=== PATIENT | male | born 1940 | race Caucasian/White ===

== ENCOUNTER 2021-03-29 06:44 | Day surgery (SDC) | payer OTHER, MEDICARE, BC ==
[~2021-03-29 06:44] MED LIST: Lactated Ringers 1,000 ML IV SCH; Sodium Chloride 0.9% 10 ML SDV IV PRN; Sodium Chloride 0.9% 10 ML Syringe FLUSH PRN; Sodium Chloride 0.9% 2.5 ML Syringe FLUSH PRN
[2021-03-29] MEDS ORDERED: fentaNYL 100 MCG/2 ML SDV ONE (06:54)
[2021-03-29] MEDS ORDERED: propofoL 0 ML ONE (06:55)
--- NOTE | 2021-03-29 07:31 | PCM.PREANE ---
Preanesthetic Assessment - Anesthesia/Transfusion/Family Hx Anesthesia History: Prior Anesthesia Without Reaction Transfusion History: No Prior Transfusion(s) - Review of Systems General: No Symptoms Pulmonary: No Symptoms Cardiovascular: No Symptoms Gastrointestinal: No Symptoms Neurological: No Symptoms Other: Reports: None - Physical Assessment NPO Status Date: 03/29/21 NPO Status Time: 00:00 Vital Signs: Last Vital Signs Temp 97.2 F 03/29/21 07:09 Pulse 67 03/29/21 07:09 Resp 15 03/29/21 07:09 BP 113/73 03/29/21 07:09 Pulse Ox 96 03/29/21 07:09 Height: 5 ft 9 in Weight: 174 lb ASA Class: 3 Mental Status: Alert & Oriented x3 Airway Class: Mallampati = 2 Dentition: Reports: Normal Dentition ROM/Head Extension: Full Lungs: Clear to Auscultation, Normal Respiratory Effort Cardiovascular: Regular Rate, Regular Rhythm - Allergies Allergies/Adverse Reactions: Allergies Allergy/AdvReac Type Severity Reaction Status Date / Time No Known Allergies Allergy Verified 03/25/21 10:19 - Acknowledgements Anesthesia Type Planned: General Anesthesia Pt an Appropriate Candidate for the Planned Anesthesia: Yes Alternatives and Risks of Anesthesia Discussed w Pt/Guardian: Yes Pt/Guardian Understands and Agrees with Anesthesia Plan: Yes PreAnesthesia Questionnaire HEENT History: Reports: None Cardiovascular History: Reports: High Cholesterol Respiratory History: Reports: None Gastrointestinal History: Reports: Cholelithiasis, Hiatal Hernia, Other (See Below) Other Gastrointestinal History: Inguinal Hernia Genitourinary History: Reports: BPH Musculoskeletal History: Reports: Fracture Other Musculoskeletal History: right hip Neurological History: Reports: None Psychiatric History: Reports: None 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 Immunologic History: Reports: Immunosuppression Oncologic (Cancer) History: Reports: Basal Cell Carcinoma, Hodgkin's Lymphoma Other Oncologic History: basal cell removed from nose - Infectious Disease History Infectious Disease History: Reports: Chicken Pox, Measles, Mumps - Past Surgical History Head Surgeries/Procedures: Reports: None HEENT Surgical History: Reports: LASIK Cardiovascular Surgical History: Reports: None Respiratory Surgical History: Reports: None GI Surgical History: Reports: Colonoscopy, Other (See Below) Other GI Surgeries/Procedures: Spleenectomy for Hodgkins Lymphoma Male Surgical History: Reports: None Endocrine Surgical History: Reports: None Neurological Surgical History: Reports: None Musculoskeletal Surgical History: Reports: ORIF, Other (See Below) Other Musculoskeletal Surgeries/Procedures:: RIGHT HIP FRACTURE, HAS PINS, partial excision of toenail for fungus Oncologic Surgical History: Reports: Other (See Below) Other Oncologic Surgeries/Procedures: Spleenectomy Dermatological Surgical History: Reports: Skin Biopsy - SUBSTANCE USE Tobacco Use Status *Q: Never Tobacco User Recreational Drug Use History: No - HOME MEDS Home Medications: Home Meds Cholestoff 450 mg PO DAILY 03/25/21 [History] Fludrocortisone [Florinef] 0.1 mg PO QAM 03/25/21 [History] Hydrocortisone 5 mg PO PCLUNCH 03/25/21 [History] Hydrocortisone [Cortef] 15 mg PO QAM 03/25/21 [History] Multivitamin 1 tab PO DAILY 03/25/21 [History] - CURRENT (IN HOUSE) MEDS Current Meds: Current Medications Lactated Ringer's (Ringers, Lactated) 1,000 mls @ 125 mls/hr IV ASDIRECTED DENNIS Last Admin: 03/29/21 07:15 Dose: 125 mls/hr Documented by: Sodium Chloride (Sodium Chloride 0.9% 10 Ml Syringe) 10 ml FLUSH ASDIRECTED PRN PRN Reason: Keep Vein Open Sodium Chloride (Sodium Chloride 0.9% 2.5 Ml Syringe) 2.5 ml FLUSH ASDIRECTED PRN PRN Reason: Keep Vein Open Sodium Chloride (Sodium Chloride 0.9% 10 Ml Syringe) 10 ml FLUSH ASDIRECTED PRN PRN Reason: Keep Vein Open Sodium Chloride (Sodium Chloride 0.9% 2.5 Ml Syringe) 2.5 ml FLUSH ASDIRECTED PRN PRN Reason: Keep Vein Open Sodium Chloride (Sodium Chloride 0.9% 10 Ml Sdv) 10 ml IV ASDIRECTED PRN PRN Reason: IV Use Discontinued Medications Fentanyl (Fentanyl 100 Mcg/2 Ml Sdv) Confirm Administered Dose 100 mcg .ROUTE .STK-MED ONE Stop: 03/29/21 06:55 Propofol (Diprivan 100 Ml) Confirm Administered Dose 100 mls @ as directed .ROUTE .STK-MED ONE Stop: 03/29/21 06:56 Lidocaine HCl (Lidocaine 1% 5 Ml Sdv) Confirm Administered Dose 5 ml .ROUTE .STK-MED ONE Stop: 03/29/21 06:55
[2021-03-29] MEDS ORDERED: Glycopyrrolate 0.2 MG/ML SDV ONE (08:54)
[2021-03-29] MEDS ORDERED: Propofol 200 MG/20 ML SDV ONE (08:55)
--- NOTE | 2021-03-29 10:00 | PCM.POSTAN ---
POST ANESTHESIA ASSESSMENT - MENTAL STATUS Mental Status: Alert, Oriented - VITAL SIGNS Vital Signs: Last Vital Signs Temp 97.2 F 03/29/21 07:09 Pulse 69 03/29/21 09:55 Resp 16 03/29/21 09:55 BP 109/64 03/29/21 09:55 Pulse Ox 97 03/29/21 09:55 - RESPIRATORY Respiratory Status: Respiratory Rate WNL, Airway Patent, O2 Saturation Stable - CARDIOVASCULAR CV Status: Pulse Rate WNL, Blood Pressure Stable - GASTROINTESTINAL GI Status: No Symptoms - POST OP HYDRATION Hydration Status: Adequate & Stable
--- NOTE | 2021-03-29 10:00 | PCM48HPAN ---
Post Anesthesia Note - EVALUATION WITHIN 48HRS OF ANESTHETIC Vital Signs in Normal Range: Yes Patient Participated in Evaluation: Yes Respiratory Function Stable: Yes Airway Patent: Yes Cardiovascular Function Stable: Yes Hydration Status Stable: Yes Pain Control Satisfactory: Yes Nausea and Vomiting Control Satisfactory: Yes Mental Status Recovered: Yes Vital Signs: Last Vital Signs Temp 97.2 F 03/29/21 07:09 Pulse 69 03/29/21 09:55 Resp 16 03/29/21 09:55 BP 109/64 03/29/21 09:55 Pulse Ox 97 03/29/21 09:55
--- NOTE | 2021-03-29 10:07 | PCM.OPNOTE ---
- General Post-Op/Procedure Note Date of Surgery/Procedure: 03/29/21 Operative Procedure(s): Diagnostic EGD and screening colonoscopy Findings: hiatal hernia, diverticulosis, ascending colon polyp, sigmoid colon polyp, rectal polyp Pre Op Diagnosis: Dysphagia, GERD, screen for colon cancer Post-Op Diagnosis: hiatal hernia, diverticulosis, ascending colon polyp, sigmoid colon polyp, rectal polyp Anesthesia Technique: MAC Primary Surgeon: Annel Wild Condition: Good
[2021-03-29 10:29] VITALS: BP 120/77; PULSE 61
--- NOTE | 2021-03-29 12:35 | OR ---
SURGEON: ANNEL WILD MD DATE OF PROCEDURE: 03/29/2021 PREOPERATIVE DIAGNOSIS: Dysphagia, gastroesophageal reflux disease, encounter for screening colonoscopy. POSTOPERATIVE DIAGNOSES: 1. Hiatal hernia. 2. Diverticulosis. 3. Ascending colon polyp. 4. Sigmoid colon polyp. 5. Rectal polyp. PROCEDURE PERFORMED: Diagnostic esophagogastroduodenoscopy and screening colonoscopy. PRIMARY SURGEON: Annel Wild MD ANESTHESIA: MAC. INSTRUMENT USED: Olympus endoscope and colonoscope. EXTENT OF THE EXAMINATION: To the second portion of the duodenum, to the cecum. PREPARATION: Good. LIMITATIONS: None. INDICATIONS FOR EXAMINATION: The patient is a 80-year-old male who came to my clinic. He was complaining of intermittent dysphagia and reflux. He is overdue for a screening colonoscopy. I explained the need for diagnostic EGD and a screening colonoscopy. The patient and I discussed the procedures, expected perioperative course, and the risks. The patient verbalized understanding and wishes to proceed. PROCEDURE IN DETAIL: The patient was brought in to the endoscopy suite and placed in the left lateral decubitus position. A time-out was completed verifying the patient's name, age, date of , allergies, and procedure to be performed. Monitored anesthesia care was induced and continuous oxygen was provided via face mask throughout the procedure. A bite block was placed in the patient's mouth. After adequate anesthesia was achieved, a well-lubricated endoscope was placed in the patient's mouth and advanced under direct visualization to the second portion of the duodenum. This appeared normal and a photograph was taken. The scope was then fully withdrawn while examining the color, texture, anatomy, and integrity mucosa of the upper GI tract. The duodenum all appeared normal. The scope was brought into the stomach and a photograph was taken of the pylorus and GE junction. I could see a small hiatal hernia with the scope in the retroflexed view. Biopsies were taken of the gastric antrum, body, and fundus and sent for histologic review and H pylori testing. No gross inflammation or ulceration was noted. The scope was then brought into the distal esophagus. A photograph was taken of the hiatal hernia sac. The Z-line appeared grossly normal. A biopsy was taken just above the Z-line and sent to Pathology labeled as esophagus. There was no evidence of distal esophagitis or ulceration. The remainder of the esophagus appeared normal. The scope was removed and this portion of procedure terminated. A digital rectal exam was performed. This exam was within normal limits. A well-lubricated colonoscope was inserted in the rectum and advanced under direct visualization to the level of the cecum. The cecum was identified by both visual and anatomic landmarks. A photograph was taken of the cecal cap; however, I was unable to retroflex the scope within the cecum due to looping of the scope more proximally. The scope was then fully withdrawn while examining the color, texture, anatomy, and integrity of the mucosa from the cecum to the anal canal. The patient was found to have a small sessile polyp in the ascending colon. This was removed in piecemeal fashion using a cold biopsy forceps. Throughout the sigmoid colon and in part of the descending colon, the patient was noted to have diverticula. A photograph of this was taken. In the distal sigmoid colon, the patient had a small sessile polyp. This was removed in piecemeal fashion using a cold biopsy forceps. The scope was brought into the rectum and a small polyp was noted there as well. This was removed in similar fashion. The scope was then retroflexed within the rectum to allow visualization of the anal canal opening. This appeared normal and a photograph was taken. The scope was then straightened out and fully withdrawn. The cecum to anus time was 14 minutes. The patient tolerated the procedure well and was transferred to the PACU in stable condition. ENDOSCOPIC DIAGNOSES: 1. Hiatal hernia. 2. Diverticulosis. 3. Ascending colon polyp. 4. Sigmoid colon polyp. 5. Rectal polyp. RECOMMENDATION: Follow up in clinic in two weeks. AHMET DE /[id number]
== END 2021-03-29 10:36 | disposition home or self-care (01) ==
LOC: MW.SDS 06:44
PROVIDERS: ATTEND Surgery
DX: Z12.11 Encounter for screening for malignant neoplasm of colon (principal); K63.5 Polyp of colon; K62.1 Rectal polyp; K44.9 Diaphragmatic hernia without obstruction or gangrene; K57.30 Diverticulosis of large intestine without perforation or abscess without bleeding; N40.0 Benign prostatic hyperplasia without lower urinary tract symptoms; K80.20 Calculus of gallbladder without cholecystitis without obstruction; K40.90 Unilateral inguinal hernia, without obstruction or gangrene, not specified as recurrent; E78.00 Pure hypercholesterolemia, unspecified; Z79.899 Other long term (current) drug therapy; Z98.890 Other specified postprocedural states; K21.9 Gastro-esophageal reflux disease without esophagitis
CPT/HCPCS: 43239; 45380; 88305; J2370; J2704; J3010; J3490; J7120; 00813; 99100

== ENCOUNTER 2021-04-21 06:46 | Day surgery (SDC) | payer OTHER, MEDICARE, BC ==
[~2021-04-21 06:46] MED LIST changes: -Sodium Chloride 0.9% 10 ML SDV IV PRN; -Sodium Chloride 0.9% 10 ML Syringe FLUSH PRN; -Sodium Chloride 0.9% 2.5 ML Syringe FLUSH PRN
[2021-04-21] MEDS ORDERED: fentaNYL 250 MCG/5 ML SDV ONE (07:18)
[2021-04-21] MEDS ORDERED: Propofol 200 MG/20 ML SDV ONE (07:18)
[2021-04-21] MEDS ORDERED: Octyl 2-Cyanoacrylate 1 Tube ONE (07:21)
[2021-04-21] MEDS ORDERED: Albuterol 0.083% 2.5 MG/3 ML Neb Soln NEB PRN (07:26)
[2021-04-21] MEDS ORDERED: Naloxone 0.4 MG/ML Syringe IVPUSH PRN (07:26)
[2021-04-21] MEDS ORDERED: Ondansetron 4 MG/2 ML SDV IVPUSH PRN (07:26)
[2021-04-21] MEDS ORDERED: Metoclopramide 10 MG/2 ML SDV IVPUSH PRN (07:26)
[2021-04-21] MEDS ORDERED: Morphine 2 MG/ML SYRINGE IVPUSH PRN (07:26)
[2021-04-21] MEDS ORDERED: fentaNYL 100 MCG/2 ML SDV IVPUSH PRN (07:26)
[2021-04-21] MEDS ORDERED: HYDROmorphone 1 MG/ML Syringe IVPUSH PRN (07:26)
--- NOTE | 2021-04-21 07:35 | PCM.PREANE ---
Preanesthetic Assessment - Anesthesia/Transfusion/Family Hx Anesthesia History: Prior Anesthesia Without Reaction Family History of Anesthesia Reaction: No Transfusion History: No Prior Transfusion(s) Intubation History: Unknown - Review of Systems General: No Symptoms Pulmonary: No Symptoms Cardiovascular: No Symptoms Gastrointestinal: Difficulty Swallowing Neurological: No Symptoms Other: Reports: None, Easy Bleeding - Physical Assessment NPO Status Date: 04/21/21 NPO Status Time: 00:00 Vital Signs: Last Vital Signs Temp 95.9 F L 04/21/21 07:03 Pulse 58 L 04/21/21 07:03 Resp 15 04/21/21 07:03 BP 136/73 04/21/21 07:03 Pulse Ox 95 04/21/21 07:03 Height: 5 ft 9 in Weight: 173 lb ASA Class: 3 Airway Class: Mallampati = 3 Dentition: Reports: [place](s) ROM/Head Extension: Full Lungs: Clear to Auscultation, Normal Respiratory Effort Cardiovascular: Regular Rate, Regular Rhythm - Allergies Allergies/Adverse Reactions: Allergies Allergy/AdvReac Type Severity Reaction Status Date / Time No Known Allergies Allergy Verified 04/15/21 11:04 - Anesthesia Plan Pre-Op Medication Ordered: Other - Acknowledgements Anesthesia Type Planned: General Anesthesia Pt an Appropriate Candidate for the Planned Anesthesia: Yes Alternatives and Risks of Anesthesia Discussed w Pt/Guardian: Yes Pt/Guardian Understands and Agrees with Anesthesia Plan: Yes PreAnesthesia Questionnaire HEENT History: Reports: None Cardiovascular History: Reports: High Cholesterol Respiratory History: Reports: None Gastrointestinal History: Reports: Cholelithiasis, Colon Polyp, Diverticulosis, Hiatal Hernia, Other (See Below) Other Gastrointestinal History: Inguinal Hernia Genitourinary History: Reports: BPH Musculoskeletal History: Reports: Fracture Other Musculoskeletal History: right hip Neurological History: Reports: None Psychiatric History: Reports: None 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 Hematologic History: Reports: None Immunologic History: Reports: Immunosuppression Oncologic (Cancer) History: Reports: Basal Cell Carcinoma, Hodgkin's Lymphoma Other Oncologic History: basal cell removed from nose - Infectious Disease History Infectious Disease History: Reports: Chicken Pox, Measles, Mumps - Past Surgical History Head Surgeries/Procedures: Reports: None HEENT Surgical History: Reports: LASIK Cardiovascular Surgical History: Reports: None Respiratory Surgical History: Reports: None GI Surgical History: Reports: Colonoscopy, EGD, Other (See Below) Other GI Surgeries/Procedures: Spleenectomy for Hodgkins Lymphoma Male Surgical History: Reports: None Endocrine Surgical History: Reports: None Neurological Surgical History: Reports: None Musculoskeletal Surgical History: Reports: ORIF, Other (See Below) Other Musculoskeletal Surgeries/Procedures:: RIGHT HIP FRACTURE, HAS PINS, partial excision of toenail for fungus Oncologic Surgical History: Reports: Other (See Below) Other Oncologic Surgeries/Procedures: Spleenectomy Dermatological Surgical History: Reports: Skin Biopsy - SUBSTANCE USE Tobacco Use Status *Q: Never Tobacco User Recreational Drug Use History: No - HOME MEDS Home Medications: Home Meds Cholestoff 450 mg PO DAILY 03/25/21 [History] Fludrocortisone [Florinef] 0.15 mg PO QAM 03/25/21 [History] Hydrocortisone 5 mg PO QPM 03/25/21 [History] Hydrocortisone [Cortef] 12.5 mg PO QAM 03/25/21 [History] Multivitamin 1 tab PO DAILY 03/25/21 [History] Fludrocortisone [Florinef] 0.1 mg PO QPM 04/15/21 [History] - CURRENT (IN HOUSE) MEDS Current Meds: Current Medications Lactated Ringer's (Ringers, Lactated) 1,000 mls @ 100 mls/hr IV ASDIRECTED DENNIS Discontinued Medications Fentanyl (Fentanyl 250 Mcg/5 Ml Sdv) Confirm Administered Dose 250 mcg .ROUTE .STK-MED ONE Stop: 04/21/21 07:19 Octyl Cyanoacrylate (Octyl 2-Cyanoacrylate 1 Tube) Confirm Administered Dose 1 applic .ROUTE .STK-MED ONE Stop: 04/21/21 07:22 Propofol (Propofol 200 Mg/20 Ml Sdv) Confirm Administered Dose 200 mg .ROUTE .STK-MED ONE Stop: 04/21/21 07:19
[2021-04-21] MEDS ORDERED: Bupivacaine 25%/EPINEPHrine/PF 60 ML ONE (07:47)
[2021-04-21] MEDS ORDERED: ceFAZolin 1 GM in Premix Bag 1 BAG IV ONE (07:52)
[2021-04-21] MEDS ORDERED: ceFAZolin 1 GM Vial ONE (08:43)
[2021-04-21] MEDS ORDERED: Ondansetron 4 MG/2 ML SDV ONE (08:46)
[2021-04-21] MEDS ORDERED: Lidocaine 2% 5 ML SDV ONE (08:46)
[2021-04-21] MEDS ORDERED: Dexamethasone 4 MG/ML 5 ML MDV ONE (08:46)
[2021-04-21] MEDS ORDERED: ePHEDrine 50 MG/ML SDV ONE (08:46)
[2021-04-21] MEDS ORDERED: Sodium Chloride 0.9% 40 ML ONE (09:02)
--- NOTE | 2021-04-21 10:08 | PCM.OPNOTE ---
- General Post-Op/Procedure Note Date of Surgery/Procedure: 04/21/21 Operative Procedure(s): Right inguinal hernia repair Findings: Right indirect inguinal hernia repair Pre Op Diagnosis: Right inguinal hernia Post-Op Diagnosis: same Anesthesia Technique: General LMA, Local Primary Surgeon: Annel Wild Fluid Replacement, Intraop: 1,500 EBL in mLs: 10 Condition: Good
--- NOTE | 2021-04-21 10:36 | PCM48HPAN ---
Post Anesthesia Note - EVALUATION WITHIN 48HRS OF ANESTHETIC Vital Signs in Normal Range: Yes Patient Participated in Evaluation: Yes Respiratory Function Stable: Yes Airway Patent: Yes Cardiovascular Function Stable: Yes Hydration Status Stable: Yes Pain Control Satisfactory: Yes Nausea and Vomiting Control Satisfactory: Yes Mental Status Recovered: Yes Vital Signs: Last Vital Signs Temp 95.7 F L 04/21/21 10:20 Pulse 79 04/21/21 10:20 Resp 15 04/21/21 10:20 BP 107/61 04/21/21 10:20 Pulse Ox 92 L 04/21/21 10:20
--- NOTE | 2021-04-21 10:36 | PCM.POSTAN ---
POST ANESTHESIA ASSESSMENT - MENTAL STATUS Mental Status: Alert, Oriented - VITAL SIGNS Vital Signs: Last Vital Signs Temp 95.7 F L 04/21/21 10:20 Pulse 79 04/21/21 10:20 Resp 15 04/21/21 10:20 BP 107/61 04/21/21 10:20 Pulse Ox 92 L 04/21/21 10:20 - RESPIRATORY Respiratory Status: Respiratory Rate WNL, Airway Patent, O2 Saturation Stable - CARDIOVASCULAR CV Status: Pulse Rate WNL, Blood Pressure Stable - GASTROINTESTINAL GI Status: No Symptoms - POST OP HYDRATION Hydration Status: Adequate & Stable
--- NOTE | 2021-04-21 10:44 | PCM.SN.2 ---
- Free Text/Narrative Note: Anesthesia Start: 0750 Anesthesia Stop: 075 After obtaining informed consent and performing a block time out, the patient had a right Ultrasound Guided Rectus sheath and Right US guided TAPS block under sterile conditions using 0.25% Bupiv with epi (total volume of 45 cc) No complications. Patient tolerated the procedure well Jerrod Moreira MD
[2021-04-21 11:47] VITALS: BP 98/59; PULSE 69
--- NOTE | 2021-04-21 11:50 | OR ---
SURGEON: ANNEL WILD MD DATE OF PROCEDURE: 04/21/2021 PREOPERATIVE DIAGNOSIS: Right inguinal hernia. POSTOPERATIVE DIAGNOSIS: Right indirect inguinal hernia. PROCEDURE PERFORMED: Right inguinal hernia repair with mesh. PRIMARY SURGEON: Annel Wild MD ANESTHESIA: General LMA. FLUIDS: 1500 mL crystalloid. ESTIMATED BLOOD LOSS: 5 mL. FINDINGS: Right indirect inguinal hernia containing small bowel. COMPLICATIONS: None. INDICATIONS: The patient is a 80-year-old male, who presented to my clinic with a reducible right inguinal hernia. This has been getting larger in size over the past year. I explained the need for repair. He elected to undergo an open repair with mesh. I explained the procedure, expected perioperative course, and the risks. He verbalized understanding and wishes to proceed. PROCEDURE IN DETAIL: The patient was brought to the OR and placed on the OR table in supine position. A time-out was completed verifying the patient's name, age, date of , allergies, and procedure to be performed. General LMA anesthesia was induced. A rectus sheath block was performed prior to the beginning of the procedure. The abdomen, pelvis, and genitalia were then prepped and draped in usual standard fashion. I anesthetized along the right inguinal fold with 0.5% Marcaine plain. A right oblique incision was made one fingerbreadth above the inguinal ligament. This was performed using a 15 blade. Using cautery, I then dissected down to the external oblique. The external oblique was opened along its fibers using Metzenbaum scissors. The incision was carried down through the external ring. The patient was noted to have a very large hernia sac, which had attenuated the external oblique. I grasped the external oblique with hemostats and created a plane using a Kittner and blunt dissection between the hernia sac and the external oblique. This was carried down to the inguinal floor. The hernia sac and spermatic cord contents were encircled with a Elías drain. I then began dissecting the hernia sac off the surrounding structures. I could see that the patient's inguinal floor was intact. The hernia was indirect and located on top of the cord structures. Using gentle blunt dissection, I dissected the hernia sac off the cord structures. I then carried my dissection bluntly to the internal ring. Once the hernia sac was completely freed from the surrounding structures, I inspected the hernia sac. It was intact. I could see small intestine within the sac. I then reduced the hernia sac into the abdomen through the internal ring. A medium Prolene mesh plug and patch were then brought into the field. The plug was placed through the internal ring. It was then secured around the internal ring with interrupted 0 Ethibond sutures. The mesh patch was placed in the inguinal floor. It was secured to the pubic tubercle medially, along the ilioinguinal ligament inferiorly, and along the conjoined tendon superiorly making a slit for the cord and cord structures. Attention was made to protecting the ilioinguinal nerve, which was left above the repair. Once the mesh was secured, a Valsalva maneuver was performed. The mesh appeared to be in good position. There was just enough room through the slit of the mesh to accept the tip of my finger. This ensured that the cord structures were not strangulated. I then irrigated the operative field with normal saline Ancef solution and suctioned this out. The area appeared hemostatic. I closed the external oblique over the top of the mesh. This was closed with a running 3-0 Vicryl suture taking care not to strangulate the cord and to recreate the external ring. I then closed the subcutaneous fat layer with running layers of 3-0 Vicryl suture. The skin was closed with a running 4- 0 Monocryl stitch. Dermabond and sterile dressings were applied. The patient tolerated the procedure well and was transferred to the PACU in stable condition. AHMET DE /[id number]
== END 2021-04-21 12:00 | disposition home or self-care (01) ==
LOC: MW.SDS 06:46
PROVIDERS: ATTEND Surgery
DX: K40.90 Unilateral inguinal hernia, without obstruction or gangrene, not specified as recurrent (principal); K57.30 Diverticulosis of large intestine without perforation or abscess without bleeding; K63.5 Polyp of colon; K44.9 Diaphragmatic hernia without obstruction or gangrene
CPT/HCPCS: 49505; A9270; C1781; J0690; J1100; J2370; J2405; J2704; J3010; J7120; 00830; 99100

== ENCOUNTER 2021-06-07 07:46 | Day surgery (SDC) | payer OTHER, MEDICARE, BC ==
[~2021-06-07 07:46] MED LIST changes: +Albuterol 0.083% 2.5 MG/3 ML Neb Soln NEB PRN; +HYDROmorphone 1 MG/ML Syringe IVPUSH PRN; +Metoclopramide 10 MG/2 ML SDV IVPUSH PRN; +Morphine 2 MG/ML SYRINGE IVPUSH PRN; +Naloxone 0.4 MG/ML SDV IVPUSH PRN; +Ondansetron 4 MG/2 ML SDV IVPUSH PRN; +Sodium Chloride 0.9% 10 ML SDV IV PRN; +Sodium Chloride 0.9% 10 ML Syringe FLUSH PRN; +Sodium Chloride 0.9% 2.5 ML Syringe FLUSH PRN; +fentaNYL 100 MCG/2 ML SDV IVPUSH PRN
[2021-06-07] MEDS ORDERED: ceFAZolin 2 GM in Premix Bag 1 BAG IV ONE (08:00)
--- NOTE | 2021-06-07 08:24 | PCM.PREANE ---
Preanesthetic Assessment - Anesthesia/Transfusion/Family Hx Anesthesia History: Prior Anesthesia Without Reaction Transfusion History: No Prior Transfusion(s) Intubation History: Unknown - Review of Systems General: No Symptoms Pulmonary: No Symptoms Cardiovascular: No Symptoms Gastrointestinal: No Symptoms Neurological: No Symptoms Other: Reports: None - Physical Assessment NPO Status Date: 06/07/21 NPO Status Time: 00:00 Vital Signs: Last Vital Signs Temp 95.7 F L 06/07/21 07:54 Pulse 62 06/07/21 07:54 Resp 16 06/07/21 07:54 BP 131/78 06/07/21 07:54 Pulse Ox 95 06/07/21 07:54 Height: 5 ft 9 in Weight: 172 lb ASA Class: 3 Mental Status: Alert & Oriented x3 Airway Class: Mallampati = 2 Dentition: Reports: Normal Dentition Thyro-Mental Finger Breadths: 3 Mouth Opening Finger Breadths: 3 ROM/Head Extension: Full Lungs: Clear to Auscultation, Normal Respiratory Effort Cardiovascular: Regular Rate, Regular Rhythm - Allergies Allergies/Adverse Reactions: Allergies Allergy/AdvReac Type Severity Reaction Status Date / Time No Known Allergies Allergy Verified 06/02/21 13:12 - Acknowledgements Anesthesia Type Planned: General Anesthesia Pt an Appropriate Candidate for the Planned Anesthesia: Yes Alternatives and Risks of Anesthesia Discussed w Pt/Guardian: Yes Pt/Guardian Understands and Agrees with Anesthesia Plan: Yes PreAnesthesia Questionnaire HEENT History: Reports: None Cardiovascular History: Reports: High Cholesterol Respiratory History: Reports: None Gastrointestinal History: Reports: Cholelithiasis, Colon Polyp, Diverticulosis, Hiatal Hernia, Other (See Below) Other Gastrointestinal History: Inguinal Hernia Genitourinary History: Reports: BPH Musculoskeletal History: Reports: Fracture Other Musculoskeletal History: right hip Neurological History: Reports: None Psychiatric History: Reports: None Endocrine/Metabolic History: Reports: [place] Disease Hematologic History: Reports: None Immunologic History: Reports: Immunosuppression Oncologic (Cancer) History: Reports: Basal Cell Carcinoma, Hodgkin's Lymphoma Other Oncologic History: basal cell removed from nose Dermatologic History: Reports: None - Infectious Disease History Infectious Disease History: Reports: Chicken Pox, Measles, Mumps - Past Surgical History Head Surgeries/Procedures: Reports: None HEENT Surgical History: Reports: LASIK Cardiovascular Surgical History: Reports: None Respiratory Surgical History: Reports: None GI Surgical History: Reports: Colonoscopy, EGD, Hernia, Inguinal, Other (See Below) Other GI Surgeries/Procedures: Spleenectomy for Hodgkins Lymphoma Male Surgical History: Reports: None Endocrine Surgical History: Reports: None Neurological Surgical History: Reports: None Musculoskeletal Surgical History: Reports: ORIF, Other (See Below) Other Musculoskeletal Surgeries/Procedures:: RIGHT HIP FRACTURE, HAS PINS, partial excision of toenail for fungus Oncologic Surgical History: Reports: Other (See Below) Other Oncologic Surgeries/Procedures: Spleenectomy Dermatological Surgical History: Reports: Skin Biopsy - SUBSTANCE USE Tobacco Use Status *Q: Never Tobacco User Recreational Drug Use History: No - HOME MEDS Home Medications: Home Meds Cholestoff 450 mg PO DAILY 03/25/21 [History] Fludrocortisone [Florinef] 0.15 mg PO QAM 03/25/21 [History] Hydrocortisone 5 mg PO QPM 03/25/21 [History] Hydrocortisone [Cortef] 12.5 mg PO QAM 03/25/21 [History] Multivitamin 1 tab PO DAILY 03/25/21 [History] Fludrocortisone [Florinef] 0.1 mg PO QPM 04/15/21 [History] - CURRENT (IN HOUSE) MEDS Current Meds: Current Medications Albuterol (Albuterol 0.083% 2.5 Mg/3 Ml Neb Soln) 2.5 mg NEB ONETIME PRN PRN Reason: Wheezing Droperidol (Droperidol 5 Mg/2 Ml Sdv) 0.625 mg IVPUSH ONETIME PRN PRN Reason: Nausea/Vomiting Fentanyl (Fentanyl 100 Mcg/2 Ml Sdv) 50 mcg IVPUSH Q5M PRN PRN Reason: Pain (mild 1-3) Hydromorphone HCl (Hydromorphone 1 Mg/Ml Syringe) 1 mg IVPUSH Q10M PRN PRN Reason: Pain (moderate 4-6) Lactated Ringer's (Ringers, Lactated) 1,000 mls @ 125 mls/hr IV ASDIRECTED [facility] Last Admin: 06/07/21 08:13 Dose: 125 mls/hr Documented by: Cefazolin Sodium/Dextrose 2 gm (/ Premix) 50 mls @ 100 mls/hr IV ONETIME ONE Stop: 06/07/21 08:29 Metoclopramide HCl (Metoclopramide 10 Mg/2 Ml Sdv) 10 mg IVPUSH ONETIME PRN PRN Reason: Nausea/Vomiting Morphine Sulfate (Morphine 2 Mg/Ml Syringe) 2 mg IVPUSH Q10M PRN PRN Reason: Pain (severe 7-10) Naloxone HCl (Naloxone 0.4 Mg/Ml Sdv) 0.1 mg IVPUSH ASDIRECTED PRN PRN Reason: Respiratory Depression Ondansetron HCl (Ondansetron 4 Mg/2 Ml Sdv) 4 mg IVPUSH ONETIME PRN PRN Reason: Nausea/Vomiting Sodium Chloride (Sodium Chloride 0.9% 2.5 Ml Syringe) 2.5 ml FLUSH ASDIRECTED PRN PRN Reason: Keep Vein Open Sodium Chloride (Sodium Chloride 0.9% 10 Ml Sdv) 10 ml IV ASDIRECTED PRN PRN Reason: IV Use Sodium Chloride (Sodium Chloride 0.9% 10 Ml Syringe) 10 ml FLUSH ASDIRECTED PRN PRN Reason: Keep Vein Open
[2021-06-07] MEDS ORDERED: fentaNYL 100 MCG/2 ML SDV ONE (09:04)
[2021-06-07] MEDS ORDERED: Rocuronium Bromide 50 MG/5 ML Syringe ONE (09:04)
[2021-06-07] MEDS ORDERED: Propofol 200 MG/20 ML SDV ONE (09:04)
[2021-06-07] MEDS ORDERED: Lidocaine 2% 100 MG/5 ML Syringe ONE (09:04)
[2021-06-07] MEDS ORDERED: Bupivacaine 0.5% 30 ML SDV ONE (09:14)
[2021-06-07] MEDS ORDERED: Phenylephrine 1% 10 MG/ML SDV ONE (09:45)
[2021-06-07] MEDS ORDERED: Dexamethasone 4 MG/ML 5 ML MDV ONE (09:53)
[2021-06-07] MEDS ORDERED: Ondansetron 4 MG/2 ML SDV ONE (10:08)
[2021-06-07] MEDS ORDERED: Sugammadex Sodium 200 MG/2 ML VIAL ONE (10:08)
[2021-06-07] MEDS ORDERED: Ketorolac 30 MG/ML SDV ONE (10:08)
[2021-06-07] MEDS ORDERED: Octyl 2-Cyanoacrylate 1 Tube ONE (10:42)
--- NOTE | 2021-06-07 10:55 | PCM.OPNOTE ---
- General Post-Op/Procedure Note Date of Surgery/Procedure: 06/07/21 Operative Procedure(s): Laparoscopic cholecystectomy, lysis of adhesions Findings: Adhesions of liver and gallbladder to the anterior abdominal wall Pre Op Diagnosis: Cholelithiasis Post-Op Diagnosis: same, intra-abdominal adhesions Anesthesia Technique: General ET Tube Primary Surgeon: Annel Wild Fluid Replacement, Intraop: 1,000 Output, Urine Amount: 60 EBL in mLs: 5 Condition: Good
--- NOTE | 2021-06-07 11:23 | PCM48HPAN ---
Post Anesthesia Note - EVALUATION WITHIN 48HRS OF ANESTHETIC Vital Signs in Normal Range: Yes Patient Participated in Evaluation: Yes Respiratory Function Stable: Yes Airway Patent: Yes Cardiovascular Function Stable: Yes Hydration Status Stable: Yes Pain Control Satisfactory: Yes Nausea and Vomiting Control Satisfactory: Yes Mental Status Recovered: Yes Vital Signs: Last Vital Signs Temp 97.2 F 06/07/21 11:14 Pulse 71 06/07/21 11:14 Resp 14 06/07/21 11:14 BP 130/71 06/07/21 11:14 Pulse Ox 94 L 06/07/21 11:14
--- NOTE | 2021-06-07 11:23 | PCM.POSTAN ---
POST ANESTHESIA ASSESSMENT - MENTAL STATUS Mental Status: Alert, Oriented - VITAL SIGNS Vital Signs: Last Vital Signs Temp 97.2 F 06/07/21 11:14 Pulse 71 06/07/21 11:14 Resp 14 06/07/21 11:14 BP 130/71 06/07/21 11:14 Pulse Ox 94 L 06/07/21 11:14 - RESPIRATORY Respiratory Status: Respiratory Rate WNL, Airway Patent, O2 Saturation Stable - CARDIOVASCULAR CV Status: Pulse Rate WNL, Blood Pressure Stable - GASTROINTESTINAL GI Status: No Symptoms - POST OP HYDRATION Hydration Status: Adequate & Stable
[2021-06-07 12:05] VITALS: BP 118/70; PULSE 67
--- NOTE | 2021-06-07 13:53 | OR ---
SURGEON: ANNEL WILD MD DATE OF PROCEDURE: 06/07/2021 PREOPERATIVE DIAGNOSIS: Cholelithiasis. POSTOPERATIVE DIAGNOSES: Cholelithiasis, intraabdominal adhesions. PROCEDURES PERFORMED: Laparoscopic cholecystectomy and laparoscopic lysis of intraabdominal adhesions. PRIMARY SURGEON: Annel Wild MD ANESTHESIA: General endotracheal anesthesia. FLUIDS: 1000 mL crystalloid. ESTIMATED BLOOD LOSS: 5 mL. URINE OUTPUT: 60 mL. FINDINGS: Adhesions of the gallbladder to the anterior abdominal wall, and adhesions of the liver to the anterior abdominal wall. Gallbladder grossly appeared normal. COMPLICATIONS: None. INDICATIONS: The patient is a 80-year-old male who presented to clinic and was found to have gallstones within his gallbladder. To prevent issues with this in the future, the decision was made to proceed with a laparoscopic, possible open cholecystectomy. I explained the procedure, expected perioperative course, and the risks. The patient and his verbalized understanding and wished to proceed. PROCEDURE IN DETAIL: The patient was brought in to the OR and placed on the OR table in supine position. A time-out was completed verifying the patient's name, age, date of , allergies, and procedure to be performed. General endotracheal anesthesia was induced. The left arm was tucked at the patient's side and a Jessica catheter placed. The abdomen was prepped and draped in usual standard fashion. I anesthetized the infraumbilical fold with 0.5% Marcaine plain. An 11-blade was used to make an incision along the infraumbilical fold. Cautery was used to dissect down to the subcutaneous fat layer. I bluntly dissected down to the fascia. At the level of the fascia, I noted old Prolene suture. The patient has a history of a previous exploratory laparotomy. This was done many years ago. The suture was cut and removed from the field. I then grasped the fascia with Kochers and elevated it. It was incised sharply with curved Urena scissors. Entry into the abdomen was palpated digitally. Stay sutures were placed on either side using 0 Vicryl sutures. A 12 mm Bill trocar was inserted into the abdomen and it was insufflated. I inserted a 5 mm 30-degree scope and inspected the area underneath my initial trocar placement. No damage to surrounding structures was noted. The patient was placed into reverse Trendelenburg position and then placed slightly to the left. On inspection of the right upper quadrant, the patient was noted to have an adhesion from the dome of the gallbladder to the anterior abdominal wall. There were also adhesions along the liver edge to the abdominal wall. I placed a 5 mm trocar under direct visualization two fingerbreadths below the right subcostal margin in the midclavicular line. Using this port and hook cautery, I took down the adhesions of the liver and gallbladder to the anterior abdominal wall to allow me to proceed safely with the remainder of the surgery. 5 mm trocars were placed in the epigastric area and along the right flank in a similar fashion. The dome of the gallbladder was then grasped and elevated anteriorly. I was able to identify the infundibulum. Using a combination of blunt dissection and hook cautery, I took down the attachments and surrounding fat around the cystic duct and artery. I then cleared away one-third of my cystic plate. Once my critical view was achieved, a photograph was taken. I doubly clipped and ligated the cystic duct and artery. The remainder of the attachments of the gallbladder to the cystic plate were taken down in proximal to distal fashion using hook cautery. The gallbladder was then placed in an EndoCatch bag and removed through the 12 mm port site. I inspected my operative field. There was a small amount of oozing along the lateral edge. This was controlled with electrocautery and Surgicel. I saw no evidence of bile leakage. Once my hemostasis was achieved, a photograph of the liver bed was taken. I then removed my 5 mm trocar sites and allowed the abdomen to desufflate. The 12 mm trocar was removed as well. I closed the fascia at the infraumbilical port site with interrupted 0 Vicryl sutures. The subcutaneous fat layer was closed with a running 3-0 Vicryl stitch. The skin was closed with a running 4-0 Monocryl stitch. The 5 mm trocar sites were closed with interrupted 4-0 Monocryl sutures. Dermabond and sterile dressings were applied. The patient tolerated the procedure well and was extubated and taken to PACU in stable condition. All counts were complete and correct at the end of the case. AHMET / SANTINO /[id number]
== END 2021-06-07 12:25 | disposition home or self-care (01) ==
LOC: MW.SDS 07:46
PROVIDERS: ATTEND Surgery
DX: K80.10 Calculus of gallbladder with chronic cholecystitis without obstruction (principal); K66.0 Peritoneal adhesions (postprocedural) (postinfection); N40.0 Benign prostatic hyperplasia without lower urinary tract symptoms; E78.00 Pure hypercholesterolemia, unspecified; Z79.899 Other long term (current) drug therapy; Z98.890 Other specified postprocedural states
CPT/HCPCS: 47562; 88304; A9270; J0131; J0690; J1100; J1885; J2370; J2405; J2704; J3010; J3490; J7120; 00790; 99100